=== PATIENT | female | born 1975 | race Caucasian/White ===

== ENCOUNTER 2019-06-28 18:15 | Emergency (ER) | payer SELFPAY ==
[2019-06-28 18:24] VITALS: BP 137/93; PULSE 116; RESP 18; TEMP 36.7; O2SAT 96; BMI 30.4
--- NOTE | 2019-06-28 18:26 | ED_ITS ---
HPI - Extremity Injury (Upper) General: Chief Complaint: Extremity Injury, Upper Stated Complaint: left hand lac Time Seen by Provider: 06/28/19 18:21 Source: patient Mode of arrival: ambulatory Limitations: no limitations History of Present Illness: HPI narrative: pt reports cutting vegetables and accidentally cut her L thumb; tetanus is UTD complaint: injury to: left Onset (ago): hour(s) Other Extremity Injury: Left: fingers Other injuries: none Place: home Relieving factors: none Exacerbating factors: none Associated symptoms: Reports no associated symptoms Review of Systems Skin/Breast: Reports: other (laceration to L thumb) Neuro: Denies: numbness in extremities or changes in sensation PFSH ED PFSH: Social History Smoking and tobacco status: never smoked Physical Exam Const: COMMON NORMALS: oriented x3, no limitations and alert GENERAL APPEARANCE: in distress (due to pain) Extremity: OTHER: pt has an extremity small 2-3mm skin avulsion to distal corner of her L thumb nail/skin; there is nothing to repair at this time; no damage to her nail bed Neuro: COMMON NORMALS: oriented x3 SENSORIUM/ORIENTATION: Yes alert Skin: OTHER: see extremity assessment Course Vital Signs: Vital signs: Vital Signs Temperature 98.1 F 06/28/19 18:24 Pulse Rate 116 H 06/28/19 18:28 Respiratory Rate 18 06/28/19 18:28 Blood Pressure 137/93 06/28/19 18:24 Pulse Oximetry 96 06/28/19 18:28 Discharge Plan Discharge Patient Disposition: Home, Self-Care Clinical Impression: Avulsion of skin of left thumb Qualifiers: Encounter type: initial encounter Qualified Code(s): S61.002A - Unspecified open wound of left thumb without damage to nail, initial encounter Condition: Stable Discharge Orders: Discharge Order (Routine); Ordered 06/28/19 Ordered By: Angela Aguilar Discharge Diet: Usual diet Discharge Activity: Increase activity as tolerated Patient Instructions: Skin Avulsion (ED) Activity Restrictions/Additional Instructions: Keep clean with warm soap and water several times daily. Monitor for infection-redness, drainage, swelling, increased pain. Coding Level of Care Code ED Business Information Manager for Dinah Caldwell
[2019-06-28 18:28] VITALS: PULSE 116; RESP 18; O2SAT 96
--- NOTE | 2019-06-28 19:00 | PC.NURSE ---
left thumb dressed with a nonadhearant dressing and coband
== END 2019-06-28 19:02 | disposition home or self-care (01) ==
LOC: ER 18:32
PROVIDERS: Emergency Provider Physician Assistant
DX: S61.012A Laceration without foreign body of left thumb without damage to nail, initial encounter (principal); W26.0XXA Contact with knife, initial encounter; Y93.G3 Activity, cooking and baking
CPT/HCPCS: 12345; 99281; 99282

== ENCOUNTER → 2020-02-26 09:32 | Outpatient (BNVA) | payer OTHER, SELFPAY | PROVIDERS: Visit Provider Family Medicine | DX: Z20.828 Contact with and (suspected) exposure to other viral communicable diseases (principal) | CPT/HCPCS: 87635 ==

== ENCOUNTER → 2020-04-15 09:23 | Outpatient (BNVA) | payer OTHER, SELFPAY | PROVIDERS: Visit Provider Psychiatry & Neurology Neurology | DX: F33.0 Major depressive disorder, recurrent, mild (principal); F41.1 Generalized anxiety disorder | CPT/HCPCS: 90791 ==

== ENCOUNTER → 2020-05-08 11:34 | Outpatient (BNVA) | payer OTHER, SELFPAY | PROVIDERS: Absent Provider Family Medicine; PCP Family Medicine; Visit Provider Family Medicine | DX: Z01.419 Encounter for gynecological examination (general) (routine) without abnormal findings (principal); Z13.6 Encounter for screening for cardiovascular disorders; L65.9 Nonscarring hair loss, unspecified | CPT/HCPCS: 88175 ==

== ENCOUNTER → 2020-05-09 08:44 | Outpatient (BNVA) | payer OTHER, SELFPAY | PROVIDERS: PCP Family Medicine; Visit Provider Family Medicine | DX: Z13.6 Encounter for screening for cardiovascular disorders (principal); L65.9 Nonscarring hair loss, unspecified | CPT/HCPCS: 80053; 80061; 84443; 85025 ==

== ENCOUNTER 2020-05-10 10:58 | Emergency (ER) | payer OTHER, SELFPAY ==
[2020-05-10 11:01] VITALS: BP 123/72; PULSE 81; RESP 16; TEMP 36.7; O2SAT 98; BMI 29.2
--- NOTE | 2020-05-10 11:19 | CTR_ITS ---
PROCEDURE INFORMATION: Exam: CT Cervical Spine Without Contrast Exam date and time: 05/10/2020 11:25 AM Age: 44 years old Clinical indication: Injury or trauma; Fall; Blunt trauma TECHNIQUE: Imaging protocol: Computed tomography images of the cervical spine without contrast. Radiation optimization: All CT scans at this facility use at least one of these dose optimization techniques: automated exposure control; mA and/or kV adjustment per patient size (includes targeted exams where dose is matched to clinical indication); or iterative reconstruction. COMPARISON: No relevant prior studies available. RADIATION DOSE METRICS: Total DLP (mGy-cm): 567.32 FINDINGS: Bones/joints: No acute fracture. Normal alignment. Discs/Spinal canal/Neural foramina: No significant disc protrusion. No severe spinal canal stenosis. No significant neural foraminal narrowing. Lungs: Lung apices are normal. Soft tissues: Unremarkable. CT/CT cervical spin wo con* [id number] IMPRESSION: No acute findings. Radiation Dose CTDIVOL = (mGy): DLP = 567.32 (mGy-cm)
--- NOTE | 2020-05-10 11:19 | CTR_ITS ---
PROCEDURE INFORMATION: Exam: CT Head Without Contrast Exam date and time: 05/10/2020 11:25 AM Age: 44 years old Clinical indication: Injury or trauma; Fall; Blunt trauma (contusions or hematomas) TECHNIQUE: Imaging protocol: Computed tomography of the head without contrast. Radiation optimization: All CT scans at this facility use at least one of these dose optimization techniques: automated exposure control; mA and/or kV adjustment per patient size (includes targeted exams where dose is matched to clinical indication); or iterative reconstruction. COMPARISON: No relevant prior studies available. RADIATION DOSE METRICS: Total DLP (mGy-cm): 759.4 FINDINGS: Brain: Normal. No hemorrhage. Unremarkable white matter. No mass effect. Cerebral ventricles: No ventriculomegaly. Bones/joints: Unremarkable. No acute fracture. Paranasal sinuses: Visualized sinuses are unremarkable. No fluid levels. Mastoid air cells: Visualized mastoid air cells are well aerated. Soft tissues: There is mild subcutaneous swelling over the frontal bone.. CT/CT head wo con* [id number] IMPRESSION: No acute intracranial abnormality. Radiation Dose CTDIVOL = (mGy): DLP = 759.4 (mGy-cm)
--- NOTE | 2020-05-10 11:20 | CTR_ITS ---
PROCEDURE INFORMATION: Exam: CT Maxillofacial Without Contrast Exam date and time: 05/10/2020 11:25 AM Age: 44 years old Clinical indication: Injury or trauma; Fall; Blunt trauma (contusions or hematomas); Head/scalp and forehead; Without loss of consciousness TECHNIQUE: Imaging protocol: Computed tomography images of the face without contrast. Radiation optimization: All CT scans at this facility use at least one of these dose optimization techniques: automated exposure control; mA and/or kV adjustment per patient size (includes targeted exams where dose is matched to clinical indication); or iterative reconstruction. COMPARISON: No relevant prior studies available. RADIATION DOSE METRICS: Total DLP (mGy-cm): 714.01 FINDINGS: Orbital cavity: Orbits are normal. Globes are unremarkable. Bones/joints: No acute fracture. Paranasal sinuses: Normal. No air-fluid levels. Soft tissues: There is mild subcutaneous swelling over the frontal bone.. CT/CT facial bones wo con* [id number] IMPRESSION: No fracture seen. Radiation Dose CTDIVOL = (mGy): DLP = 714.01 (mGy-cm)
--- NOTE | 2020-05-10 11:27 | W.ED.FALL ---
HPI - Fall General: Chief Complaint: Fall Stated Complaint: FACIAL LACERATIONS S/P FALL Time Seen by Provider: 05/10/20 11:09 History of Present Illness: HPI Narrative: Patient is a 44-year-old female who tripped and fell slamming her face into the outer wall of a building. She denies loss of consciousness but did have slight confusion after the event she could not remember the month. Now her memory is intact and normal. She complains of a frontal headache, slight neck pain, and she has abrasions to her forehead, nose, and chin. complaint: fall Fall from: standing Loss of consciousness: None Context: tripped/slipped Location of injury: head and face Severity: moderate Associated symptoms-after fall: Reports no associated symptoms and headache(s); Denies abdominal pain, chest pain, confusion, difficulty walking or neck pain Review of Systems General: Reports: 10 or more systems reviewed and unremarkable except in HPI and below Const: Denies: fatigue Eyes: Denies: change in vision, blurry vision or eye redness ENMT: Denies: throat pain, swelling of lips/tongue, ear or mastoid pain or nasal congestion Card: Denies: chest pain, palpitations, irregular heart rhythm, edema, dyspnea on exertion or orthopnea Resp: Denies: dyspnea, productive cough or non-productive cough GI: Denies: abdominal pain, diarrhea or GI cramping : Denies: flank pain, difficulty voiding, urinary frequency or urinary urgency Musc: Denies: neck pain, back pain, extremity pain, joint pain, joint redness, limited range of motion or muscle weakness Skin/Breast: Reports: other (Abrasion contusions to face); Denies: rash, pruritus, erythema, skin pain or skin tenderness Neuro: Reports: headache(s); Denies: numbness in extremities, weakness in extremities, sensory changes, difficulty walking, dizziness, confusion or Slurred speech present Psych: Denies: anxiety or depression Endo: Denies: polyuria All/Imm: Denies: urticaria, throat swelling or tongue swelling PFSH ED PFSH: Medical History Major depressive disorder RLS (restless legs syndrome) Seizures 7 years ago TIA (transient ischemic attack) 7 years ago Surgical History History of cholecystectomy Family History Other CAD (coronary artery disease) Diabetes Social History Smoking and tobacco status: never smoked Alcohol intake: current Alcohol intake frequency: few times a month Physical Exam Const: COMMON NORMALS: no acute distress, average body habitus, patient oriented x3, no limitations, healthy appearing, alert and well nourished GENERAL APPEARANCE: cooperative, comfortable, well kempt and well developed ORIENTATION/CONSCIOUSNESS: Yes awake, Yes oriented to person, Yes oriented to place and Yes oriented to time HENMT: COMMON NORMALS: normocephalic, external ears normal and Normal external nose present HEAD & SCALP: normal to inspection and normocephalic NOSE: Normal external nose present EXTERNAL EAR: Yes external ears normal MOUTH: Normal oral and palatal mucosa present THROAT: posterior oropharynx normal Eye: COMMON NORMALS: Equal, round and reactive pupils present and EOMs intact bilaterally GENERAL EYE: appearance normal, both eyes and all related structures PUPIL: Yes Equal, round and reactive pupils present Neck/C-Spine: COMMON NORMALS: full ROM, no lymphadenopathy, no meningeal signs and no JVD GENERAL: Yes normal visual inspection Lymph: LYMPHATIC: no lymphadenopathy noted Chest: COMMONS NORMALS: normal inspection of the chest and normal palpation of entire chest wall Resp: COMMON NORMALS: normal respiratory effort, No retractions, No use of accessory muscles, clear to auscultation bilaterally and percussion normal EFFORT & INSPECTION: Yes able to speak in complete sentences AUSCULTATION: clear to auscultation bilaterally PERCUSSION: percussion normal Cardio: COMMON NORMALS: no JVD, regular rate, regular rhythm, S1 normal heart sound present, S2 normal heart sound present and Peripheral pulses 2+ throughout RATE: regular rate RHYTHM: regular rhythm HEART SOUNDS: S1 normal heart sound present and S2 normal heart sound present PERIPHERAL PULSES: Peripheral pulses 2+ throughout GI: COMMON NORMALS: Normal to inspection, nondistended, normoactive bowel sounds present, Soft to palpation, non-tender and no masses INSPECTION: Yes normal to inspection PALPATION: Yes Soft to palpation : COMMON NORMALS: Yes no CVA tenderness BLADDER/KIDNEY EXAM: Yes no CVA tenderness Back/Pelvis: COMMON NORMALS: no CVA tenderness, thoracic and lumbar spine normal to inspection, no thoracic nor lumbar tenderness and thoraco-lumbar ROM normal Extremity: COMMON NORMALS: normal to inspection, full ROM, capillary refill normal, no joint enlargement and no pedal edema GENERAL: Yes normal exam except as noted Neuro: COMMON NORMALS: patient oriented x3, CN's II-XII intact bilaterally, moves all extremities, no focal motor deficits, no sensory deficits noted and gait normal SENSORIUM/ORIENTATION: Yes alert, Yes oriented to person, Yes oriented to place and Yes oriented to time MENINGEAL SIGNS: Yes no meningeal signs Psych: COMMON NORMALS: mental status grossly normal, Normal thought process present, cooperative, normal affect and speech normal APPEARANCE: Yes well kempt ATTITUDE: Yes calm SPEECH: Yes normal speech THOUGHT PROCESS: Normal thought process present Skin: COMMON NORMALS: no rashes or lesions noted NARRATIVE SKIN EXAM: The patient has abrasion contusions to forehead nose and chin. Largest is 2 forehead which is 3 cm in diameter GENERAL SKIN EXAM: no rashes or lesions noted Course Vital Signs: Vital signs: Vital Signs Temperature 98.0 F 05/10/20 11:01 Pulse Rate 70 05/10/20 12:20 Respiratory Rate 14 05/10/20 12:20 Blood Pressure 128/76 05/10/20 12:20 Pulse Oximetry 97 05/10/20 12:20 Discharge Plan Discharge Patient Disposition: Home Clinical Impression: Concussion without loss of consciousness Condition: Stable Prescriptions: No Action ropinirole 0.25 mg tablet 0.25 mg PO TID RF: 0 citalopram 40 mg tablet 40 mg PO DAILY RF: 0 Discharge Orders: Discharge ED (Routine); Ordered 05/10/20 Ordered By: Cyril Haider Referrals: Elaine Man DO [Primary Care Provider] - Discharge Diet: Advance as tolerated Discharge Activity: Resume usual activity Patient Instructions: Concussion/Head Injury - Adult, Opioid Safety Activity Restrictions/Additional Instructions: You likely have a mild concussion. Please take ibuprofen and Tylenol for pain and follow-up with your primary care doctor sometime next week. Get an MRI of your brain in a week if you are still having symptoms. Return to the ER with worsening symptoms. Coding Level of Care Code ED Sheet Metal Operator for Dinah Fwtico Exam Comprehensive
[2020-05-10 11:42] VITALS: BP 126/82; PULSE 74; RESP 14; O2SAT 98
[2020-05-10] MEDS: ketorolac 30 mg/mL INJ IM (12:15)
[2020-05-10 12:20] VITALS: BP 128/76; PULSE 70; RESP 14; O2SAT 97
[2020-05-10 13:15] VITALS: BP 123/73; PULSE 73; RESP 14; O2SAT 100
== END 2020-05-10 13:15 | disposition home or self-care (01) ==
PROVIDERS: Emergency Provider Family Medicine; PCP Family Medicine
DX: S06.0X0A Concussion without loss of consciousness, initial encounter (principal); W01.198A Fall on same level from slipping, tripping and stumbling with subsequent striking against other object, initial encounter; Z86.73 Personal history of transient ischemic attack (TIA), and cerebral infarction without residual deficits
CPT/HCPCS: 70450; 70486; 72125; 96372; 99283; J1885

== ENCOUNTER → 2020-05-22 08:35 | Outpatient (BNVA) | payer OTHER, SELFPAY | PROVIDERS: PCP Family Medicine; Visit Provider Psychiatry & Neurology Psychiatry | DX: F90.8 Attention-deficit hyperactivity disorder, other type (principal); F33.42 Major depressive disorder, recurrent, in full remission; F41.9 Anxiety disorder, unspecified | CPT/HCPCS: 90792 ==

== ENCOUNTER → 2020-07-03 07:48 | Outpatient (BNVA) | payer OTHER, SELFPAY | PROVIDERS: PCP Family Medicine; Visit Provider Psychiatry & Neurology Psychiatry | DX: F90.8 Attention-deficit hyperactivity disorder, other type (principal); F41.9 Anxiety disorder, unspecified; F33.42 Major depressive disorder, recurrent, in full remission | CPT/HCPCS: 99214 ==

== ENCOUNTER → 2020-08-15 07:45 | Outpatient (BNVA) | payer OTHER, SELFPAY | PROVIDERS: PCP Family Medicine; Visit Provider Psychiatry & Neurology Psychiatry | DX: F90.8 Attention-deficit hyperactivity disorder, other type (principal); F41.9 Anxiety disorder, unspecified; F33.42 Major depressive disorder, recurrent, in full remission | CPT/HCPCS: 99214 ==

== ENCOUNTER → 2020-09-26 10:18 | Outpatient (BNVA) | payer OTHER, SELFPAY | PROVIDERS: PCP Family Medicine; Visit Provider Nurse Practitioner Family | DX: Z20.822 Contact with and (suspected) exposure to COVID-19 (principal); Z01.812 Encounter for preprocedural laboratory examination | CPT/HCPCS: 87635 ==

== ENCOUNTER → 2020-12-08 14:25 | Outpatient (BNVA) | payer OTHER, SELFPAY | PROVIDERS: PCP Family Medicine; Visit Provider Family Medicine | DX: R63.5 Abnormal weight gain (principal); L98.9 Disorder of the skin and subcutaneous tissue, unspecified | CPT/HCPCS: 80053; 83036 ==

== ENCOUNTER → 2021-01-08 08:27 | Outpatient (BNVA) | payer OTHER, SELFPAY | PROVIDERS: PCP Family Medicine; Visit Provider Family Medicine | DX: E11.9 Type 2 diabetes mellitus without complications (principal) | CPT/HCPCS: 80053 ==

== ENCOUNTER 2021-01-11 03:19 | Emergency (ER) | payer OTHER, SELFPAY ==
[2021-01-11 03:24] VITALS: BP 116/76; PULSE 89; RESP 20; TEMP 36.4; O2SAT 100; BMI 29.6
--- NOTE | 2021-01-11 03:40 | CTR_ITS ---
PROCEDURE INFORMATION: Exam: CT Abdomen And Pelvis With Contrast Exam date and time: 01/11/2021 3:40 AM Age: 45 years old Clinical indication: Abdominal pain; Localized; Lower; Prior surgery; Surgery date: 6+ months; Surgery type: Gb; Additional info: Abd pain TECHNIQUE: Imaging protocol: Computed tomography of the abdomen and pelvis with contrast. Radiation optimization: All CT scans at this facility use at least one of these dose optimization techniques: automated exposure control; mA and/or kV adjustment per patient size (includes targeted exams where dose is matched to clinical indication); or iterative reconstruction. Contrast material: OMNI 300; Contrast volume: 95 ml; Contrast route: INTRAVENOUS (IV); COMPARISON: No relevant prior studies available. RADIATION DOSE METRICS: Total DLP (mGy-cm): 1700.89 FINDINGS: Liver: There is diffuse low attenuation throughout the liver consistent with fatty infiltration. No masses. Gallbladder and bile ducts: The patient has had a cholecystectomy. Pancreas: Normal. No ductal dilation. Spleen: Normal. No splenomegaly. Adrenal glands: Normal. No mass. Kidneys and ureters: Normal. No hydronephrosis. Stomach and bowel: There is a fecal impaction in the rectum with large stool backed to the splenic flexure. Appendix: No evidence of appendicitis. Intraperitoneal space: Small free fluid in the pelvis likely due to a ruptured follicle or cyst. Vasculature: Unremarkable. No abdominal aortic aneurysm. Lymph nodes: Unremarkable. No enlarged lymph nodes. Urinary bladder: Unremarkable as visualized. Reproductive: There is a 1.5 cm cyst in the right ovary. Bones/joints: Unremarkable. No acute fracture. Soft tissues: Unremarkable. CT/CT abdomen pelvis w con* [id number] IMPRESSION: Fecal impaction in the rectum with more proximal constipation. Fatty liver. Right ovarian cyst. Status post cholecystectomy. Radiation Dose CTDIVOL = (mGy): DLP = 1700.89 (mGy-cm)
--- NOTE | 2021-01-11 03:41 | W.ED.ABDPA2 ---
HPI - Abdominal Pain General: Chief Complaint: Abdominal Pain Stated Complaint: abd pain Time Seen by Provider: 01/11/21 03:33 History of Present Illness: HPI narrative: 45-year-old female with severe generalized abdominal pain that woke her from sleep. Onset was about 30 minutes prior to arrival. She took a laxative, and sit on the toilet, but then started hyperventilating due to pain. No history of fever or vomiting. No diarrhea. No blood in the stool. No change in urine. MD elicited complaint: abdominal pain Pertinent past history: none Onset (ago): minute(s) Pain Consistency: constant Location: Diffuse Severity: severe Quality: cramping and stabbing Radiation: none Migration to: no migration Exacerbating factors: nothing Relieving factors: nothing Associated Symptoms: Reports nausea; Denies belching, chills, coffee ground emesis, diarrhea, dyspepsia, dysuria, fever(s), hematochezia and vomiting Related Data: Date of Last Menstrual Period: 12/31/20 Review of Systems Const: Denies: fever(s) or chills Card: Denies: chest pain or palpitations Resp: Denies: dyspnea, productive cough or non-productive cough GI: Reports: nausea; Denies: vomiting, coffee ground emesis, diarrhea, belching or hematochezia : Denies: dysuria PFSH ED PFSH: Medical History ADHD, adult residual type Anxiety Major depressive disorder Psychiatric care RLS (restless legs syndrome) Seizures 7 years ago TIA (transient ischemic attack) 7 years ago Surgical History History of cholecystectomy Family History Grandmother Clotting disorder maternal Family/Other Clotting disorder maternal aunt Sister Diabetes Hyperlipidemia Breast cancer, Onset Age: 43 Mother Diabetes Heart disease Breast cancer, Onset Age: 51 Father Hyperlipidemia Other CAD (coronary artery disease) Denies family history of Colon cancer Ovarian cancer Anesthesia complication Bleeding disorder Hypertension Uterine cancer Thyroid condition Stroke Social History Smoking and tobacco status: never smoked Alcohol intake: current Alcohol intake frequency: few times a month Alcohol type: wine History of recent travel: Yes Female Reproductive History: Date of last menstrual period: 12/31/20 Physical Exam Const: COMMON NORMALS: no acute distress, patient oriented x3 and alert HENMT: COMMON NORMALS: normocephalic HEAD & SCALP: normocephalic Eye: COMMON NORMALS: Equal, round and reactive pupils present and EOMs intact bilaterally PUPIL: Yes Equal, round and reactive pupils present Resp: COMMON NORMALS: normal respiratory effort, No use of accessory muscles and clear to auscultation bilaterally AUSCULTATION: clear to auscultation bilaterally Cardio: COMMON NORMALS: regular rhythm RATE: tachycardic RHYTHM: regular rhythm GI: COMMON NORMALS: Normal to inspection, nondistended, normoactive bowel sounds present and Soft to palpation INSPECTION: No abdominal distension PALPATION: Yes Soft to palpation, Yes Tenderness to palpation present (GI) (generalized) and Yes Guarding due to palpation present (GI) Neuro: COMMON NORMALS: patient oriented x3 SENSORIUM/ORIENTATION: Yes alert Course Vital Signs: Vital signs: Vital Signs Temperature 97.5 F L 01/11/21 03:24 Pulse Rate 89 01/11/21 03:24 Respiratory Rate 20 H 01/11/21 03:24 Blood Pressure 116/76 01/11/21 03:24 Pulse Oximetry 100 01/11/21 03:24 MDM - Abdominal Pain MDM Narrative: Medical decision making narrative: Blood cell count is 6.7. Laboratory is otherwise benign. CT of the abdomen shows fecal impaction with constipation. No other acute problems. She will be prescribed a mineral oil enema, and oral laxative to take at home. Warning signs for return given. Lab Data: Labs: Lab Results 01/11/21 01/11/21 01/11/21 03:44 03:44 03:44 WBC 6.7 10^3/uL 10^3/ uL (4.0-10.0) RBC 4.23 10^6/uL 10^6 /uL (4.1-5.3) Hgb 12.6 g/dL g/dL (11.5-15.3) Hct 39.0 % % (37.0-47.0) MCV 92.2 fl fl (81-99) MCH 29.8 pg pg (28.0-34.0) MCHC 32.3 g/dL g/dL (30.0-36.0) RDW 12.6 % % (12.1-15.1) Plt Count 242 10^3/cmm 10^3 /cmm (130-400) MPV 11.3 fL H fL (7.4-10.4) Neut % (Auto) 43.9 % % Lymph % (Auto) 44.8 % % [place] % (Auto) 6.3 % % Eos % (Auto) 3.7 % % Baso % (Auto) 1.0 % % Neut # (Auto) 2.95 10^3/uL 10^3 /uL (1.8-7.7) Lymph # (Auto) 3.0 10^3/uL 10^3/ uL (0.8-4.8) [place] # (Auto) 0.4 10^3/uL 10^3/ uL (0.2-0.9) Eos # (Auto) 0.3 10^3/uL 10^3/ uL (0.0-0.8) Baso # (Auto) 0.1 10^3/uL 10^3/ uL (0.0-0.1) Nucleated RBC % (a uto) 0 % % Nucleated RBCs # 0.0 /100WBC /100W BC Sodium 138 mmol/L mmol/L (136-145) Potassium 3.5 mmol/L mmol/L (3.5-5.1) Chloride 101 mmol/L mmol/L (98-107) Carbon Dioxide 21 mmol/L L mmol/ L (22-29) Anion Gap 19.5 H (5-19) BUN 10 mg/dL mg/dL (6-20) Creatinine 0.7 mg/dL mg/dL (0.5-0.9) GFR Calculation 89.7 mL/min L mL/ min (90-130) Glucose 199 mg/dL H mg/dL (65-115) Calculated Osmolal ity 291 mOsm/kg mOsm/ kg (285-295) Lactate 1.9 mmol/L mmol/L (0.5-2.2) Calcium 9.2 mg/dL mg/dL (8.5-10.5) Total Bilirubin 0.5 mg/dL mg/dL (0.15-1.2) AST 29 U/L U/L (0-32) ALT 43 U/L H U/L (0-33) Alkaline Phosphata se 64 IU/L IU/L (35-105) C-Reactive Protein 3.0 mg/L mg/L (0.0-4.9) Total Protein 7.3 g/dL g/dL (6.6-8.7) Albumin 4.1 g/dL g/dL (3.5-5.2) Globulin 3.2 g/dL g/dL (1.3-4.6) Lipase 31 U/L U/L (13-60) HCG, Qual Urine Color Urine Appearance Urine pH Ur Specific Gravit y Urine Protein Urine Glucose (UA) Urine Ketones Urine Blood Urine Nitrate Urine Bilirubin Urine Urobilinogen Ur Leukocyte Leona ase 01/11/21 01/11/21 03:44 04:08 WBC RBC Hgb Hct MCV MCH MCHC RDW Plt Count MPV Neut % (Auto) Lymph % (Auto) [place] % (Auto) Eos % (Auto) Baso % (Auto) Neut # (Auto) Lymph # (Auto) [place] # (Auto) Eos # (Auto) Baso # (Auto) Nucleated RBC % (a uto) Nucleated RBCs # Sodium Potassium Chloride Carbon Dioxide Anion Gap BUN Creatinine GFR Calculation Glucose Calculated Osmolal ity Lactate Calcium Total Bilirubin AST ALT Alkaline Phosphata se C-Reactive Protein Total Protein Albumin Globulin Lipase HCG, Qual Negative (Negative) Urine Color Yellow (Yellow) Urine Appearance Clear (CLEAR) Urine pH 5 (5-7) Ur Specific Gravit y 1.025 (1.005-1.030) Urine Protein Neg (Negative) Urine Glucose (UA) Norm (Normal) Urine Ketones 3+ H (Negative) Urine Blood Neg (Negative) Urine Nitrate Negative (Negative) Urine Bilirubin 1+ H (Negative) Urine Urobilinogen 1 mg/dL H mg/dL (Negative) Ur Leukocyte Leona ase Negative (Negative) Discharge Plan Discharge Patient Disposition: Home Clinical Impression: Fecal impaction in rectum Constipation Qualifiers: Constipation type: unspecified constipation type Qualified Code(s): K59.00 - Constipation, unspecified Condition: Stable Prescriptions: No Action dextroamphetamine-amphetamine 20 mg capsule,extended release 24hr 20 mg PO QAM 30 Days Qty: 30 RF: 0 citalopram 40 mg tablet 40 mg PO DAILY 30 Days Qty: 30 RF: 3 Discharge Orders: Discharge ED (Routine); Ordered 01/11/21 Ordered By: Harsh Barrera Discharge Diet: Advance as tolerated Discharge Activity: Increase activity as tolerated Patient Instructions: Constipation (ED), Fecal Impaction (ED) Activity Restrictions/Additional Instructions: Use medications as prescribed and distributed to you in the ER at home. Return for fever greater than 100, vomiting liquids or medications, significant blood in the stool, other concerning symptoms. Coding Level of Care Code ED Weapons Specialist for Dinah Fwd Exam Detailed
[2021-01-11] MEDS: morphine 4 mg/mL SDV 1 mL IVP (03:51)
[2021-01-11] MEDS: ondansetron 2 mg/ML SDV 2 mL 4 MG IVP (03:51)
[2021-01-11] MEDS: sodium chloride 0.9% 1,000 ML 999 ML IV (03:51)
[2021-01-11 03:59] LABS: Basophils # 0.1 10^3/uL (0.0-0.1); Eosinophils # 0.3 10^3/uL (0.0-0.8); Eosinophils % 3.7 %; Hemoglobin 12.6 g/dL (11.5-15.3); Lymphocytes % 44.8 %; Mean Corpuscular HGB Conc 32.3 g/dL (30.0-36.0); Mean Corpuscular Hemoglobin 29.8 pg (28.0-34.0); Mean Corpuscular Volume 92.2 fl (81-99); Mean Platelet Volume 11.3 fL (7.4-10.4); Monocytes # 0.4 10^3/uL (0.2-0.9); Monocytes % 6.3 %; Neutrophils # 2.95 10^3/uL (1.8-7.7); Neutrophils % 43.9 %; Nucleated Red Blood Cells % 0 %; Platelet Count 242 10^3/cmm (130-400); Red Blood Count 4.23 10^6/uL (4.1-5.3); Red Cell Distribution Width 12.6 % (12.1-15.1); White Blood Count 6.7 10^3/uL (4.0-10.0)
[2021-01-11 04:16] LABS: HCG, Serum Qual Negative (Negative)
[2021-01-11] MEDS: iohexol 300 mg/mL 100 mL Btl IV (04:17)
[2021-01-11 04:19] LABS: Add Urine Microscopic? NO; Charge for UA Resulting for Rev
[2021-01-11 04:20] LABS: Alanine Aminotransferase 43 U/L (0-33); Albumin Level 4.1 g/dL (3.5-5.2); Alkaline Phosphatase 64 IU/L (35-105); Anion Gap 19.5 (5-19); Aspartate Amino Transferase 29 U/L (0-32); Blood Urea Nitrogen 10 mg/dL (6-20); Calcium 9.2 mg/dL (8.5-10.5); Carbon Dioxide 21 mmol/L (22-29); Chloride 101 mmol/L (98-107); Globulin 3.2 g/dL (1.3-4.6); Glomerular Filtration Rate 89.7 mL/min (90-130); Glucose 199 mg/dL (65-115); Lactate (Lactic Acid level) 1.9 mmol/L (0.5-2.2); Lipase 31 U/L (13-60); Osmolality Calculated 291 mOsm/kg (285-295); Potassium 3.5 mmol/L (3.5-5.1); Sodium 138 mmol/L (136-145); Total Bilirubin 0.5 mg/dL (0.15-1.2); Total Protein 7.3 g/dL (6.6-8.7)
[2021-01-11 04:25] LABS: Bilirubin Urine 1+ (Negative); Blood Urine Neg (Negative); Glucose Urine UA Norm (Normal); Ketones Urine 3+ (Negative); Leukocyte Esterase Urine Negative (Negative); Nitrate Urine Negative (Negative); Protein Urine Neg (Negative); Specific Gravity, Urine 1.025 (1.005-1.030); Urine Appearance Clear (CLEAR); Urine Color Yellow (Yellow); Urobilinogen Urine 1 mg/dL (Negative); pH Urine 5 (5-7)
[2021-01-11] MEDS: mineral oil ENEMA 133 mL PR (05:39)
[2021-01-11] MEDS: mineral oil 30 mL UDC PO (05:46)
[2021-01-11] MEDS: lactulose oral liq 20 gm/30 mL UDC 30 GM PO (05:46)
[2021-01-11] MEDS: magnesium hydroxide 30 mL UDC PO (05:46)
== END 2021-01-11 05:57 | disposition home or self-care (01) ==
PROVIDERS: Emergency Provider Emergency Medicine
DX: K59.00 Constipation, unspecified (principal); F90.9 Attention-deficit hyperactivity disorder, unspecified type
CPT/HCPCS: 74177; 80053; 81003; 83605; 83690; 84703; 85025; 86140; 96361; 96374; 96375; 99284; J2270; J2405; J7030; Q9967

== ENCOUNTER 2021-01-21 14:55 | Outpatient (CLI) | payer OTHER, SELFPAY | END 2021-01-21 14:56 | disposition home or self-care (01) | PROVIDERS: Visit Provider Internal Medicine | DX: E11.9 Type 2 diabetes mellitus without complications (principal); K59.00 Constipation, unspecified; E78.5 Hyperlipidemia, unspecified; R74.01 Elevation of levels of liver transaminase levels | CPT/HCPCS: 82044; 83036; 84439; 84443; 99204 ==

== ENCOUNTER 2021-03-23 09:44 | Outpatient (CLI) | payer OTHER, SELFPAY ==
[2021-03-23 10:29] LABS: Alanine Aminotransferase 37 U/L (0-33); Albumin Level 4.3 g/dL (3.5-5.2); Alkaline Phosphatase 86 IU/L (35-105); Anion Gap 16.4 (5-19); Aspartate Amino Transferase 21 U/L (0-32); Blood Urea Nitrogen 12 mg/dL (6-20); Calcium 8.9 mg/dL (8.5-10.5); Carbon Dioxide 23 mmol/L (22-29); Chloride 101 mmol/L (98-107); Chol HDL Ratio 3.84 mg/dL (0.0-4.40); Cholesterol 169 mg/dL (0-200); Globulin 3.9 g/dL (1.3-4.6); Glomerular Filtration Rate 76.9 mL/min (90-130); Glucose 115 mg/dL (65-115); HDL Cholesterol 44 mg/dL (60-100); LDL Cholesterol Calculated 97 mg/dL (50-129); Osmolality Calculated 283 mOsm/kg (285-295); Potassium 4.4 mmol/L (3.5-5.1); Sodium 136 mmol/L (136-145); Total Bilirubin 0.2 mg/dL (0.15-1.2); Total Protein 8.2 g/dL (6.6-8.7); Triglycerides 142 mg/dL (0-150)
[2021-03-23 10:31] LABS: Estmated Average Glucose 146; Hemoglobin A1C 6.7 % (4.0-6.0)
== END 2021-03-23 09:45 | disposition home or self-care (01) ==
PROVIDERS: PCP Family Medicine; Visit Provider Internal Medicine
DX: E11.9 Type 2 diabetes mellitus without complications (principal); E78.5 Hyperlipidemia, unspecified; K59.00 Constipation, unspecified; R74.01 Elevation of levels of liver transaminase levels
CPT/HCPCS: 36415; 80053; 80061; 83036

== ENCOUNTER 2021-08-14 08:13 | Emergency (ER) | payer OTHER, SELFPAY ==
[2021-08-14 08:24] VITALS: BP 134/79; PULSE 70; RESP 16; TEMP 36.8; O2SAT 100; BMI 25.8
--- NOTE | 2021-08-14 08:28 | CT_ITS ---
WS: [id number] CT HEAD NONCONTRAST HISTORY: ams TECHNIQUE: Contiguous axial imaging performed through the brain in 2.5 mm imaging. Bone and soft tiss ue windows. Sagittal and coronal reformats reviewed. All CT scans at [facility] use at least one of these dose optimization techniques: automated exposure control; mA and/or kV adjustment per pa tient size (includes targeted exams where dose is matched to clinical indication); or iterative recon struction. DLP: 890.44 mGy.cm COMPARISON: 05/10/2020 No acute intracranial hemorrhage, midline shift or mass effect. No atrophy or prior infarcts or herniation. Ventricles: Mild asymmetry of the ventricles similar to the prior study. This is a normal variant. Paranasal sinuses: As visualized are clear. Mastoid air cells: Well pneumatized. Calvarium and scalp: Skull is intact with no soft tissue edema or swelling. CT/CT head wo con* [id number] IMPRESSION: Negative head CT.
--- NOTE | 2021-08-14 08:28 | ECG_ITS ---
[facility] Test Date: 2021-08-14 Pat Name: Ada Vaughn Department: Room: Gender: Female [employer]: : 1975 Requested By: Colin Tomas Order Number: [id number] Reynoso MD: Omar Santana M.D. Measurements Intervals [place] Rate: 66 P: 38 ME: 149 QRS: 42 QRSD: 96 T: 35 QT: 384 QTc: 404 Interpretive Statements SINUS RHYTHM No previous ECG available for comparison Electronically Signed On 08-14-2021 22:15:29 CDT by Omar Santana M.D. [email or web address]
--- NOTE | 2021-08-14 08:30 | W.ED.GENADLT ---
HPI - General Adult General: Chief complaint: Altered Mental Status Stated complaint: epilepsy Time Seen by Provider: 08/14/21 08:26 Source: patient and family (Spouse) Mode of arrival: wheelchair Limitations: altered mental status History of Present Illness: This patient was transported via private vehicle to the emergency department from home by her spouse. He states that she was in her normal state of health yesterday and today she seemed to be less responsive than usual and he states that she slid out of bed. She is did not have any prior history of similar occurrences. He states that she has a history of prediabetes but takes no medications for diabetes. She does take Zoloft as well and amphetamine derivative. He states that she does not drink alcohol or take street drugs. She again was acting fine yesterday he states that she was given him a bit of a going over last night so he knows that she was in her normal state of health. She did not harm her self when she slid out of bed this morning. No history of prior recent illness or exposure to infectious disease. [facility] PFSH: Medical History ADHD, adult residual type Anxiety Major depressive disorder Psychiatric care RLS (restless legs syndrome) Seizures 7 years ago TIA (transient ischemic attack) 7 years ago Surgical History History of cholecystectomy Family History Grandmother Clotting disorder maternal Family/Other Clotting disorder maternal aunt Sister Diabetes Hyperlipidemia Breast cancer, Onset Age: 43 Mother Diabetes Heart disease Breast cancer, Onset Age: 51 Father Hyperlipidemia Other CAD (coronary artery disease) Denies family history of Colon cancer Ovarian cancer Anesthesia complication Bleeding disorder Hypertension Uterine cancer Thyroid condition Stroke Social History Smoking and tobacco status: never smoked Second hand smoke exposure: No Smoking risk assessment/counseling performed?: No Alcohol intake: current Desire information about alcohol rehabilitation?: No Counseling given: No Desire information about substance/drug rehabilitation?: No Counseling given: No Adopted: No Caregiver/support person: No Lives independently: Yes Household members: spouse and children Housing: House Marital status: Number of children: 4 Highest education level completed: High School Graduate service: No Current occupational status: employed History of recent travel: No Sexually active: Yes Current gender identity: Female Agree to transfusion: Yes Female Reproductive History: Date of last menstrual period: 12/31/20 Physical Exam Narrative: EXAM NARRATIVE: The patient will open eyes to commands and will answer questions and is somewhat 1-2 word seemingly forced answer. She was able to bear weight and pivot out of the wheelchair into bed with assistance. Course Reevaluation(s): Reevaluation #1: No focal findings on neurologic examination. Accu-Chek is 145. We will continue proceed with work-up for altered mental status. Does not appear to be a central nervous system event but we will go ahead and get a usual work-up. Time: 08:33 Reevaluation #2: Patient is more forthcoming and had a discussion with the nurse during part of the nursing procedures that stay and stated that she has had symptoms like this in the past. CT is reassuring. 1 wonders if this is a combination of her medications in addition to sleep deprivation. Time: 09:38 Reevaluation #3: Patient was reexamined and reevaluated. She is very alert conversant and goal-directed in her speech. No new or focal findings on reevaluation. We had a long discussion regarding her current findings and her presentation as well. Both she and her daughter and were present during this discussion. Patient does take Adderall as well as her citalopram but does take a holiday from her Adderall on weekends. She apparently has been on Adderall both the extended release and immediate release for about 6 months. States she was given that medication for to improve her focus. She denies any excessive caffeine. She states she does drink caffeinated beverage in the morning but nothing after 10 AM. She does relate over the past few days she has had poor sleep but she has also a longstanding history of poor sleep. She denies that there was any increase in his symptoms after starting on her Adderall. Apparently she has a remote history of seizure disorder and has not had seizure for approximately 4 years but she says she had a memory last night or dream that she may have been having a seizure. She had no findings to suggest that clinically with no evidence of self injury loss of bowel or bladder control or no witnessed seizure by her spouse who was in the same room with her. I reassured her that her findings today were reassuring and there is no evidence of any ongoing emergency medical condition but that she does have more conversation with her prescribing physician regarding her Adderall and potential ill effects. She acknowledged our discussion. All questions answered. Stable for discharge with return precautions. Time: 11:54 Vital Signs: Vital signs: Vital Signs Temperature 98.2 F 08/14/21 08:24 Pulse Rate 70 08/14/21 08:24 Respiratory Rate 16 08/14/21 08:24 Blood Pressure 134/79 08/14/21 08:24 Pulse Oximetry 100 08/14/21 08:24 [facility] - General Adult Medical Decision Making Patient with presentation of somewhat altered mental status who had a significant work-up while in the emergency department without any evidence of stroke, hypoglycemia, substance effects etc. at this time. History of recent sleep deprivation superimposed on chronic poor sleep as well as current medications may or may not contributing to her presentation. She is stable at this time for discharge with further outpatient work-up. Medical Records I reviewed the patient's medical records. Lab Data I reviewed the patient's lab results. : 08/14/21 08:25 08/14/21 08:[address] 08/14/21 08:28 IMPRESSION: Negative head CT. Laboratory Results WBC 6.3 10^3/uL (4.0-10.0) 08/14/21 08:25 RBC 4.39 10^6/uL (4.1-5.3) 08/14/21 08:25 Hgb 13.0 g/dL (11.5-15.3) 08/14/21 08:25 Hct 40.7 % (37.0-47.0) 08/14/21 08:25 MCV 92.7 fl (81-99) 08/14/21 08:25 MCH 29.6 pg (28.0-34.0) 08/14/21 08:25 MCHC 31.9 g/dL (30.0-36.0) 08/14/21 08:25 RDW 13.1 % (12.1-15.1) 08/14/21 08:25 Plt Count 245 10^3/cmm (130-400) 08/14/21 08:25 MPV 10.6 fL (7.4-10.4) H 08/14/21 08:25 Neut % (Auto) 39.8 % 08/14/21 08:25 Lymph % (Auto) 44.1 % 08/14/21 08:25 [place] % (Auto) 8.3 % 08/14/21 08:25 Eos % (Auto) 6.4 % 08/14/21 08:25 Baso % (Auto) 1.1 % 08/14/21 08:25 Neut # (Auto) 2.50 10^3/uL (1.8-7.7) 08/14/21 08:25 Lymph # (Auto) 2.8 10^3/uL (0.8-4.8) 08/14/21 08:25 [place] # (Auto) 0.5 10^3/uL (0.2-0.9) 08/14/21 08:25 Eos # (Auto) 0.4 10^3/uL (0.0-0.8) 08/14/21 08:25 Baso # (Auto) 0.1 10^3/uL (0.0-0.1) 08/14/21 08:25 Nucleated RBC % (auto) 0 % 08/14/21 08:25 Nucleated RBCs # 0.0 /100WBC 08/14/21 08:25 Sodium 135 mmol/L (136-145) L 08/14/21 08:25 Potassium 4.3 mmol/L (3.5-5.1) 08/14/21 08:25 Chloride 101 mmol/L (98-107) 08/14/21 08:25 Carbon Dioxide 23 mmol/L (22-29) 08/14/21 08:25 Anion Gap 15.3 (5-19) 08/14/21 08:25 BUN 10 mg/dL (6-20) 08/14/21 08:25 Creatinine 0.8 mg/dL (0.5-0.9) 08/14/21 08:25 GFR Calculation 76.6 mL/min (90-130) L 08/14/21 08:25 Glucose 149 mg/dL (65-115) H 08/14/21 08:25 POC Glucose 142 mg/dL (70-110) H 08/14/21 08:21 Calculated Osmolality 282 mOsm/kg (285-295) L 08/14/21 08:25 Calcium 9.3 mg/dL (8.5-10.5) 08/14/21 08:25 Total Bilirubin 0.3 mg/dL (0.15-1.2) 08/14/21 08:25 AST 17 U/L (0-32) 08/14/21 08:25 ALT 20 U/L (0-33) 08/14/21 08:25 Alkaline Phosphatase 81 IU/L (35-105) 08/14/21 08:25 Total Protein 7.5 g/dL (6.6-8.7) 08/14/21 08:25 Albumin 4.4 g/dL (3.5-5.2) 08/14/21 08:25 Globulin 3.1 g/dL (1.3-4.6) 08/14/21 08:25 HCG, Qual Negative (Negative) 08/14/21 09:36 Urine Color Yellow (Yellow) 08/14/21 09:36 Urine Appearance Clear (CLEAR) 08/14/21 09:36 Urine pH 6 (5-7) 08/14/21 09:36 Ur Specific [place] 1.020 (1.005-1.030) 08/14/21 09:36 Urine Protein Neg (Negative) 08/14/21 09:36 Urine Glucose (UA) Norm (Normal) 08/14/21 09:36 Urine Ketones Negative (Negative) 08/14/21 09:36 Urine Blood Neg (Negative) 08/14/21 09:36 Urine Nitrate Negative (Negative) 08/14/21 09:36 Urine Bilirubin Neg (Negative) 08/14/21 09:36 Urine Urobilinogen Norm mg/dL (Negative) 08/14/21 09:36 Ur Leukocyte Esterase Negative (Negative) 08/14/21 09:36 Salicylates < 0.3 mg/dL (3-10) L 08/14/21 08:25 Acetaminophen < 5.0 ug/mL (10-30) L 08/14/21 08:25 Ethyl Alcohol < 10 mg/dL (0-10) 08/14/21 08:25 Discharge Plan Discharge Patient Disposition: Home Clinical Impression: ADHD, Altered mental status Condition: Stable Prescriptions: No Action dextroamphetamine-amphetamine 20 mg capsule,extended release 24hr 20 mg PO QAM 30 Days Qty: 30 0RF dextroamphetamine-amphetamine [Adderall] 5 mg tablet 5 mg PO DAILY 30 Days Qty: 30 0RF citalopram 40 mg tablet 40 mg PO DAILY 30 Days Qty: 30 3RF ibuprofen 200 mg Tablet 200 mg PO Q6H PRN (Reason: Pain) 0RF Discharge Orders: Discharge ED (Routine); Ordered 08/14/21 Ordered By: Colin Tomas Referrals: Elaine Man DO [Primary Care Provider] - 4-7 days (ED follow-up) Discharge Diet: Usual diet Discharge Activity: Resume usual activity Patient Instructions: Opioid Safety Activity Restrictions/Additional Instructions: Continue to take your usual medicines as prescribed. Call your prescribing physician on Tuesday to discuss additional medication and or adjustments. If you develop any new persistent or worsening symptoms return to this or the nearest emergency department. Coding Level of Care Code ED Giver for Dinah Caldwell
[2021-08-14 08:44] LABS: Basophils # 0.1 10^3/uL (0.0-0.1); Basophils % 1.1 %; Eosinophils # 0.4 10^3/uL (0.0-0.8); Eosinophils % 6.4 %; Hematocrit 40.7 % (37.0-47.0); Lymphocytes # 2.8 10^3/uL (0.8-4.8); Lymphocytes % 44.1 %; Mean Corpuscular HGB Conc 31.9 g/dL (30.0-36.0); Mean Corpuscular Hemoglobin 29.6 pg (28.0-34.0); Mean Corpuscular Volume 92.7 fl (81-99); Mean Platelet Volume 10.6 fL (7.4-10.4); Monocytes # 0.5 10^3/uL (0.2-0.9); Monocytes % 8.3 %; Neutrophils % 39.8 %; Nucleated Red Blood Cells % 0 %; Platelet Count 245 10^3/cmm (130-400); Red Blood Count 4.39 10^6/uL (4.1-5.3); Red Cell Distribution Width 13.1 % (12.1-15.1); White Blood Count 6.3 10^3/uL (4.0-10.0)
[2021-08-14 08:58] LABS: Glucose Point of Care 142 mg/dL (70-110)
[2021-08-14 09:02] LABS: Alanine Aminotransferase 20 U/L (0-33); Albumin Level 4.4 g/dL (3.5-5.2); Alkaline Phosphatase 81 IU/L (35-105); Anion Gap 15.3 (5-19); Aspartate Amino Transferase 17 U/L (0-32); Blood Urea Nitrogen 10 mg/dL (6-20); Calcium 9.3 mg/dL (8.5-10.5); Carbon Dioxide 23 mmol/L (22-29); Chloride 101 mmol/L (98-107); Globulin 3.1 g/dL (1.3-4.6); Glomerular Filtration Rate 76.6 mL/min (90-130); Glucose 149 mg/dL (65-115); Osmolality Calculated 282 mOsm/kg (285-295); Potassium 4.3 mmol/L (3.5-5.1); Sodium 135 mmol/L (136-145); Total Bilirubin 0.3 mg/dL (0.15-1.2); Total Protein 7.5 g/dL (6.6-8.7)
[2021-08-14 09:03] LABS: Acetaminophen < 5.0 ug/mL (10-30); Alcohol Level < 10 mg/dL (0-10); Salicylate < 0.3 mg/dL (3-10)
[2021-08-14 09:47] LABS: Add Urine Microscopic? NO; Charge for UA Resulting for Rev
[2021-08-14 09:52] LABS: HCG Qualitative Urine. Negative (Negative); Urine Appearance Clear (CLEAR); Urine Color Yellow (Yellow)
[2021-08-14 09:53] LABS: Bilirubin Urine Neg (Negative); Blood Urine Neg (Negative); Glucose Urine UA Norm (Normal); Ketones Urine Negative (Negative); Leukocyte Esterase Urine Negative (Negative); Nitrate Urine Negative (Negative); Protein Urine Neg (Negative); Urobilinogen Urine Norm (Negative); pH Urine 6 (5-7)
[2021-08-14 12:10] VITALS: BP 119/74
== END 2021-08-14 12:12 | disposition home or self-care (01) ==
PROVIDERS: Emergency Provider Emergency Medicine; PCP Family Medicine
DX: R41.82 Altered mental status, unspecified (principal); F90.9 Attention-deficit hyperactivity disorder, unspecified type
CPT/HCPCS: 36416; 36600; 70450; 80053; 80307; 81003; 81025; 82803; 82962; 85025; 93005; 99284

== ENCOUNTER 2021-08-20 16:29 | Emergency (ER) | payer OTHER, SELFPAY ==
[2021-08-20 16:33] VITALS: BP 120/77; PULSE 101; RESP 16; TEMP 36.6; O2SAT 97; BMI 31.0
--- NOTE | 2021-08-20 16:47 | ECG_ITS ---
[facility] Test Date: 2021-08-20 Pat Name: Ada Vaughn Department: Room: Gender: Female Mental Tester: : 1975 Requested By: Aidan Engilsh Order Number: [id number] Edgardo MD: Tavon Woodall M.D. Measurements Intervals [place] Rate: 77 P: 49 OR: 146 QRS: 55 QRSD: 104 T: 39 QT: 360 QTc: 409 Interpretive Statements SINUS RHYTHM Compared to ECG 08/14/2021 08:44:18 No significant changes Electronically Signed On 08-20-2021 17:14:28 CDT by Tavon Woodall M.D. [id number]
--- NOTE | 2021-08-20 16:58 | W.ED.GENADLT ---
Documented by User: Aidan Davis DO 08/22/21 17:41 HPI - General Adult General: Chief complaint: General Medical Stated complaint: lethargic, confusion Time Seen by Provider: 08/20/21 16:46 Source: patient Mode of arrival: ambulatory Limitations: no limitations History of Present Illness: 46-year-old female presents emergency room stating she had a seizure couple of days ago she is also had 179 years ago. She not put any medication she did see a neurologist in the past she describes her seizures as situational [place] seizures. When asked her if they have ever used the term pseudoseizure, functional seizure, somaticization or conversion disorder she did not recognize any of those names. She states she was told medicines would not be helpful. She has not had any recurrent over the since then up some very weak and lethargic she does not have any loss of consciousness or is been no head trauma she denies any change in medications recently. When I read the ER note from the most recent visit there is no mention of seizure and there does not look like she told staff at that time that she thought she had a seizure. Onset (ago): day(s) (6) Radiation: non-radiation Severity: mild Quality: burning Pain Consistency: constant Relieving factors: none Exacerbating factors: none Associated symptoms: Reports malaise, seizures (??) and weakness; Deny chest pain, confusion, cough, diaphoresis, decreased appetite, dyspnea, fevers/chills, headache(s), nausea, rash, palpitations, short of breath, syncope or vomiting Treatments prior to arrival: none Review of Systems Const: Reports: fatigue and malaise; Denies: fever(s), chills, body aches or diaphoresis ENMT: Denies: throat pain, ear or mastoid pain, nasal discharge or nasal congestion Card: Denies: chest pain, palpitations or syncope Resp: Denies: dyspnea, productive cough, non-productive cough or wheezing GI: Denies: abdominal pain, nausea or vomiting : Denies: flank pain, difficulty voiding, dysuria, urinary frequency or urinary urgency Skin/Breast: Denies: rash Neuro: Denies: headache(s) or confusion PFS ED PFSH: Medical History ADHD, adult residual type Anxiety Major depressive disorder Psychiatric care RLS (restless legs syndrome) Seizures 7 years ago TIA (transient ischemic attack) 7 years ago Surgical History History of cholecystectomy Family History Grandmother Clotting disorder maternal Family/Other Clotting disorder maternal aunt Sister Diabetes Hyperlipidemia Breast cancer, Onset Age: 43 Mother Diabetes Heart disease Breast cancer, Onset Age: 51 Father Hyperlipidemia Other CAD (coronary artery disease) Denies family history of Colon cancer Ovarian cancer Anesthesia complication Bleeding disorder Hypertension Uterine cancer Thyroid condition Stroke Social History Smoking and tobacco status: never smoked Second hand smoke exposure: No Smoking risk assessment/counseling performed?: No Alcohol intake: current Desire information about alcohol rehabilitation?: No Counseling given: No Desire information about substance/drug rehabilitation?: No Counseling given: No Adopted: No Caregiver/support person: No Lives independently: Yes Household members: spouse and children Housing: House Marital status: Number of children: 4 Highest education level completed: High School Graduate service: No Current occupational status: employed History of recent travel: No Sexually active: Yes Current gender identity: Female Agree to transfusion: Yes Female Reproductive History: Date of last menstrual period: 12/31/20 Physical Exam Const: COMMON NORMALS: no acute distress GENERAL APPEARANCE: cooperative and comfortable ORIENTATION/CONSCIOUSNESS: Yes awake, Yes oriented to person, Yes oriented to place and Yes oriented to time HENMT: COMMON NORMALS: normocephalic, atraumatic, hearing grossly normal bilaterally, external ears normal, EAC's normal, TM's normal bilaterally, Normal nasal mucous membranes and turbinates present, moist oral mucous membranes and oropharynx normal HEAD & SCALP: normocephalic and atraumatic NOSE: Normal nasal mucous membranes and turbinates present EXTERNAL EAR: Yes external ears normal EXTERNAL AUDITORY CANAL: EAC's normal TYMPANIC MEMBRANE: TM's normal bilaterally Eye: COMMON NORMALS: Equal, round and reactive pupils present, EOMs intact bilaterally, conjunctivae normal and no scleral icterus CONJUNCTIVA: Yes conjunctivae normal PUPIL: Yes Equal, round and reactive pupils present Neck/C-Spine: COMMON NORMALS: no JVD Resp: COMMON NORMALS: normal respiratory effort, No retractions, No use of accessory muscles and clear to auscultation bilaterally AUSCULTATION: clear to auscultation bilaterally Cardio: COMMON NORMALS: no JVD, regular rate, regular rhythm and No murmurs present (Cardio) RATE: regular rate RHYTHM: regular rhythm GI: COMMON NORMALS: Soft to palpation and No hepatosplenomegaly present AUSCULTATION: Yes normoactive bowel sounds PALPATION: Yes Soft to palpation, No Tenderness to palpation present (GI), No Guarding due to palpation present (GI) and Yes No hepatosplenomegaly present Extremity: COMMON NORMALS: normal to inspection, capillary refill normal, no clubbing, cyanosis or edema, no calf tenderness and no pedal edema Neuro: SENSORIUM/ORIENTATION: Yes oriented to person, Yes oriented to place and Yes oriented to time Skin: COMMON NORMALS: no rashes or lesions noted GENERAL SKIN EXAM: no rashes or lesions noted Course Vital Signs: Vital signs: Vital Signs Temperature 98 F 08/20/21 16:33 Pulse Rate 75 08/20/21 18:38 Respiratory Rate 16 08/20/21 18:38 Blood Pressure 117/70 08/20/21 18:38 Pulse Oximetry 98 08/20/21 18:38 [facility] - General Adult Medical Decision Making Care signed out to Dr. Izaguirre at change of shift. See final notes for diagnosis and disposition. Patient presents here with generalized weakness and fatigue her blood work here is all normal head CT is normal she is stable for discharge at this time she is to follow-up with PCP and return if worsening she understands agrees to plan. Medical Records I reviewed the patient's medical records. Lab Data I reviewed the patient's lab results. : 08/20/21 18:12 08/20/21 17:[address] 08/20/21 17:06 IMPRESSION: No acute intracranial abnormality. Laboratory Results WBC 6.6 10^3/uL (4.0-10.0) 08/20/21 18:12 Corrected WBC Cancelled 08/20/21 17:14 RBC 3.95 10^6/uL (4.1-5.3) L 08/20/21 18:12 Hgb 11.7 g/dL (11.5-15.3) 08/20/21 18:12 Hct 35.4 % (37.0-47.0) L 08/20/21 18:12 MCV 89.6 fl (81-99) 08/20/21 18:12 MCH 29.6 pg (28.0-34.0) 08/20/21 18:12 MCHC 33.1 g/dL (30.0-36.0) 08/20/21 18:12 RDW 13.1 % (12.1-15.1) 08/20/21 18:12 Plt Count 243 10^3/cmm (130-400) 08/20/21 18:12 MPV 10.7 fL (7.4-10.4) H 08/20/21 18:12 Gran % Cancelled 08/20/21 17:14 Neut % (Auto) 51.3 % 08/20/21 18:12 Lymph % (Auto) 35.8 % 08/20/21 18:12 [place] % (Auto) 6.8 % 08/20/21 18:12 Eos % (Auto) 4.7 % 08/20/21 18:12 Baso % (Auto) 1.1 % 08/20/21 18:12 Neut # (Auto) 3.38 10^3/uL (1.8-7.7) 08/20/21 18:12 Lymph # (Auto) 2.4 10^3/uL (0.8-4.8) 08/20/21 18:12 [place] # (Auto) 0.5 10^3/uL (0.2-0.9) 08/20/21 18:12 Eos # (Auto) 0.3 10^3/uL (0.0-0.8) 08/20/21 18:12 Baso # (Auto) 0.1 10^3/uL (0.0-0.1) 08/20/21 18:12 Absolute Gran (auto) Cancelled 08/20/21 17:14 Nucleated RBC % (auto) 0 % 08/20/21 18:12 Nucleated RBCs # 0.0 /100WBC 08/20/21 18:12 Sodium 136 mmol/L (136-145) 08/20/21 17:14 Potassium 4.2 mmol/L (3.5-5.1) 08/20/21 17:14 Chloride 101 mmol/L (98-107) 08/20/21 17:14 Carbon Dioxide 21 mmol/L (22-29) L 08/20/21 17:14 Anion Gap 18.2 (5-19) 08/20/21 17:14 BUN 14 mg/dL (6-20) 08/20/21 17:14 Creatinine 0.6 mg/dL (0.5-0.9) 08/20/21 17:14 GFR Calculation 106.7 mL/min (90-130) 08/20/21 17:14 Glucose 162 mg/dL (65-115) H 08/20/21 17:14 Calculated Osmolality 286 mOsm/kg (285-295) 08/20/21 17:14 Calcium 8.8 mg/dL (8.5-10.5) 08/20/21 17:14 Total Bilirubin 0.2 mg/dL (0.15-1.2) 08/20/21 17:14 AST 21 U/L (0-32) 08/20/21 17:14 ALT 18 U/L (0-33) 08/20/21 17:14 Alkaline Phosphatase 69 IU/L (35-105) 08/20/21 17:14 Creatine Kinase 61 U/L (26-192) 08/20/21 17:14 Total Protein 6.9 g/dL (6.6-8.7) 08/20/21 17:14 Albumin 3.9 g/dL (3.5-5.2) 08/20/21 17:14 Globulin 3.0 g/dL (1.3-4.6) 08/20/21 17:14 Urine Color Yellow (Yellow) 08/20/21 17:26 Urine Appearance Clear (CLEAR) 08/20/21 17:26 Urine pH 5 (5-7) 08/20/21 17:26 Ur Specific [place] 1.025 (1.005-1.030) 08/20/21 17:26 Urine Protein Neg (Negative) 08/20/21 17:26 Urine Glucose (UA) Norm (Normal) 08/20/21 17:26 Urine Ketones Negative (Negative) 08/20/21 17:26 Urine Blood Neg (Negative) 08/20/21 17:26 Urine Nitrate Negative (Negative) 08/20/21 17:26 Urine Bilirubin Neg (Negative) 08/20/21 17:26 Urine Urobilinogen Norm mg/dL (Negative) 08/20/21 17:26 Ur Leukocyte Esterase Negative (Negative) 08/20/21 17:26 Discharge Plan Discharge Patient Disposition: Home Clinical Impression: Generalized weakness Condition: Stable Prescriptions: No Action citalopram 40 mg tablet 40 mg PO DAILY 30 Days Qty: 30 3RF Discharge Orders: Discharge ED (Routine); Ordered 08/20/21 Ordered By: Ilan Izaguirre Referrals: Elaine Man DO [Primary Care Provider] - 1-3 days Discharge Diet: Advance as tolerated Discharge Activity: Resume usual activity Patient Instructions: Weakness (ED) Stand Alone Forms: Work/School Release Coding Level of Care Code ED Termite Technician for Chg Fwd Exam Comprehensive Documented by User: Ilan Izaguirre MD 08/20/21 18:42 HPI - General Adult General: Chief complaint: General Medical Stated complaint: lethargic, confusion Time Seen by Provider: 08/20/21 16:46 PFSH ED PFSH: Medical History ADHD, adult residual type Anxiety Major depressive disorder Psychiatric care RLS (restless legs syndrome) Seizures 7 years ago TIA (transient ischemic attack) 7 years ago Surgical History History of cholecystectomy Family History Grandmother Clotting disorder maternal Family/Other Clotting disorder maternal aunt Sister Diabetes Hyperlipidemia Breast cancer, Onset Age: 43 Mother Diabetes Heart disease Breast cancer, Onset Age: 51 Father Hyperlipidemia Other CAD (coronary artery disease) Denies family history of Colon cancer Ovarian cancer Anesthesia complication Bleeding disorder Hypertension Uterine cancer Thyroid condition Stroke Social History Smoking and tobacco status: never smoked Second hand smoke exposure: No Smoking risk assessment/counseling performed?: No Alcohol intake: current Desire information about alcohol rehabilitation?: No Counseling given: No Desire information about substance/drug rehabilitation?: No Counseling given: No Adopted: No Caregiver/support person: No Lives independently: Yes Household members: spouse and children Housing: House Marital status: Number of children: 4 Highest education level completed: High School Graduate service: No Current occupational status: employed History of recent travel: No Sexually active: Yes Current gender identity: Female Agree to transfusion: Yes Course Vital Signs: Vital signs: Vital Signs Temperature 98 F 08/20/21 16:33 Pulse Rate 75 08/20/21 18:38 Respiratory Rate 16 08/20/21 18:38 Blood Pressure 117/70 08/20/21 18:38 Pulse Oximetry 98 08/20/21 18:38 [facility] - General Adult Medical Decision Making Patient presents here with generalized weakness and fatigue her blood work here is all normal head CT is normal she is stable for discharge at this time she is to follow-up with PCP and return if worsening she understands agrees to plan. Lab Data : 08/20/21 18:12 08/20/21 17:[address] 08/20/21 17:06
[2021-08-20 16:59] VITALS: BP 122/69; PULSE 79; RESP 16; O2SAT 96
--- NOTE | 2021-08-20 17:06 | CTR_ITS ---
PROCEDURE INFORMATION: Exam: CT Head Without Contrast Exam date and time: 08/20/2021 5:41 PM Age: 46 years old Clinical indication: Altered mental status/memory loss; Additional info: Confusion, lethargy, base of skull headache x 4 days TECHNIQUE: Imaging protocol: Computed tomography of the head without contrast. Radiation optimization: All CT scans at this facility use at least one of these dose optimization techniques: automated exposure control; mA and/or kV adjustment per patient size (includes targeted exams where dose is matched to clinical indication); or iterative reconstruction. COMPARISON: CT head wo con* [id number] 08/14/2021 9:11 AM RADIATION DOSE METRICS: Total DLP (mGy-cm): 869.13 FINDINGS: Brain: No hemorrhage or evidence of acute infarction. No mass effect. Cerebral ventricles: No ventriculomegaly. Paranasal sinuses: Visualized sinuses are unremarkable. No fluid levels. Mastoid air cells: Visualized mastoid air cells are well aerated. Bones/joints: Unremarkable. No acute fracture. Soft tissues: Unremarkable. CT/CT head wo con* [id number] IMPRESSION: No acute intracranial abnormality.
[2021-08-20 17:32] LABS: Add Urine Microscopic? NO; Charge for UA Resulting for Rev
[2021-08-20 17:42] LABS: Bilirubin Urine Neg (Negative); Blood Urine Neg (Negative); Glucose Urine UA Norm (Normal); Ketones Urine Negative (Negative); Leukocyte Esterase Urine Negative (Negative); Nitrate Urine Negative (Negative); Protein Urine Neg (Negative); Specific Gravity, Urine 1.025 (1.005-1.030); Urine Appearance Clear (CLEAR); Urine Color Yellow (Yellow); Urobilinogen Urine Norm (Negative); pH Urine 5 (5-7)
[2021-08-20 17:59] LABS: Alanine Aminotransferase 18 U/L (0-33); Albumin Level 3.9 g/dL (3.5-5.2); Alkaline Phosphatase 69 IU/L (35-105); Blood Urea Nitrogen 14 mg/dL (6-20); Calcium 8.8 mg/dL (8.5-10.5); Carbon Dioxide 21 mmol/L (22-29); Chloride 101 mmol/L (98-107); Creatine Phosphokinase 61 U/L (26-192); Glomerular Filtration Rate 106.7 mL/min (90-130); Glucose 162 mg/dL (65-115); Osmolality Calculated 286 mOsm/kg (285-295); Sodium 136 mmol/L (136-145); Total Bilirubin 0.2 mg/dL (0.15-1.2); Total Protein 6.9 g/dL (6.6-8.7)
[2021-08-20 18:01] LABS: Anion Gap 18.2 (5-19); Aspartate Amino Transferase 21 U/L (0-32); Potassium 4.2 mmol/L (3.5-5.1)
[2021-08-20 18:20] LABS: Basophils # 0.1 10^3/uL (0.0-0.1); Basophils % 1.1 %; Eosinophils # 0.3 10^3/uL (0.0-0.8); Eosinophils % 4.7 %; Hematocrit 35.4 % (37.0-47.0); Hemoglobin 11.7 g/dL (11.5-15.3); Lymphocytes # 2.4 10^3/uL (0.8-4.8); Lymphocytes % 35.8 %; Mean Corpuscular HGB Conc 33.1 g/dL (30.0-36.0); Mean Corpuscular Hemoglobin 29.6 pg (28.0-34.0); Mean Corpuscular Volume 89.6 fl (81-99); Mean Platelet Volume 10.7 fL (7.4-10.4); Monocytes # 0.5 10^3/uL (0.2-0.9); Monocytes % 6.8 %; Neutrophils # 3.38 10^3/uL (1.8-7.7); Neutrophils % 51.3 %; Nucleated Red Blood Cells % 0 %; Platelet Count 243 10^3/cmm (130-400); Red Blood Count 3.95 10^6/uL (4.1-5.3); Red Cell Distribution Width 13.1 % (12.1-15.1); White Blood Count 6.6 10^3/uL (4.0-10.0)
[2021-08-20 18:38] VITALS: BP 117/70; PULSE 75; RESP 16; O2SAT 98
== END 2021-08-20 18:40 | disposition home or self-care (01) ==
PROVIDERS: Family Medicine; Emergency Provider Emergency Medicine; PCP Family Medicine
DX: R53.1 Weakness (principal); R53.83 Other fatigue; Z86.73 Personal history of transient ischemic attack (TIA), and cerebral infarction without residual deficits
CPT/HCPCS: 36415; 70450; 80053; 81003; 82550; 85025; 93005; 99284

== ENCOUNTER 2021-11-12 13:27 | Outpatient (CLI) | payer OTHER, SELFPAY ==
--- NOTE | 2021-11-12 13:35 | MM_ITS ---
WS: [id number] BILATERAL 3D TOMOSYNTHESIS DIGITAL SCREENING MAMMOGRAPHY WITH CAD CLINICAL INFORMATION: SCREENING HISTORY: Screening mammogram. No current complaints. COMPARISON: November 12, 2021 TECHNIQUE: Bilateral CC and MLO views. FINDINGS: Scattered fibroglandular densities bilaterally. Incidental punctate calcifications. Coarse calcificat ions upper outer RIGHT breast likely calcified fibroadenoma. No suspicious focal mass, asymmetry, nba cifications, or architectural distortion. No evidence of malignancy. MM/[place] [id number] IMPRESSION: BI-RADS: 2-Benign FOLLOW UP: 1 Year Follow-up Recommend return to annual screening mammography.
== END 2021-11-12 13:28 | disposition home or self-care (01) ==
LOC: RAD 13:31
PROVIDERS: PCP Family Medicine; Visit Provider Family Medicine
DX: Z12.31 Encounter for screening mammogram for malignant neoplasm of breast (principal)
CPT/HCPCS: 77063; 77067

== ENCOUNTER → 2024-03-05 12:03 | Outpatient (BNVA) | payer OTHER, SELFPAY | PROVIDERS: PCP Family Medicine; Visit Provider Nurse Practitioner Psychiatric/Mental Health | DX: Z03.89 Encounter for observation for other suspected diseases and conditions ruled out (principal); Z79.899 Other long term (current) drug therapy | CPT/HCPCS: 80307 ==

== ENCOUNTER → 2024-06-04 11:35 | Outpatient (BNVA) | payer BC, SELFPAY | PROVIDERS: PCP Family Medicine; Referring Provider Nurse Practitioner Psychiatric/Mental Health; Visit Provider Internal Medicine Cardiovascular Disease | DX: Z79.899 Other long term (current) drug therapy (principal) | CPT/HCPCS: 93005 ==